=== PATIENT | male | born 1960 ===

== ENCOUNTER → 2021-05-04 | Outpatient (CLI) | payer BC ==
[~2021-05-04] MED LIST: CATHETER FLUSH 10 ML SYR IV PRN; HOLD METFORMIN - RECEIVED CONTRAST 20 ML VIAL IV SCH; IOHEXOL 350 MG/ML 100 ML (OMNIPAQUE 350) VIAL IV ONE; NS 100 ML (IVPB) BAG IV ONE
--- NOTE | 2021-05-04 11:04 | Diagnostic Imaging Report ---
PROCEDURE: CT abdomen and pelvis with contrast. TECHNIQUE: Multiple contiguous axial images were obtained through the abdomen and pelvis after administration of intravenous contrast. Auto Exposure Controls were utilized during the CT exam to meet ALARA standards for radiation dose reduction. All CT scans use one or more of the following dose optimizing techniques: automated exposure control, MA and/or KvP adjustment based on patient size and exam type or iterative reconstruction. INDICATION: Abdominal mass. No prior studies are available for comparison. FINDINGS: There is an 11 x 11 x 11 cm peripherally calcified cystic mass in the upper mid abdomen at the level of the pancreas. Due to the large size it is difficult to determine if this is actually arising from the pancreas or adjacent to it. This could be a primary cystic neoplasm of the pancreas. It could be a duplication cyst. I do not believe this represents a thrombosed aneurysm off of a branch of the celiac axis. No intrinsic abnormality of the liver is seen. The gallbladder is normal. Spleen and adrenals are normal. The kidneys, ureters and bladder are normal. The prostate is normal. No acute bowel abnormality is seen. There is no ascites. There is no adenopathy. There is no acute bony abnormality. IMPRESSION: There is a large peripherally calcified cystic mass in the upper abdomen in the midline which is likely but not definitely arising from the pancreas with possibilities as described above. Dictated by: Dictated on workstation # [id number]
== END ==
LOC: RAD 04-30 09:15
PROVIDERS: ATTEND Internal Medicine
DX: R19.00 Intra-abdominal and pelvic swelling, mass and lump, unspecified site (principal)
CPT/HCPCS: 74177

== ENCOUNTER → 2021-08-03 | Outpatient (CLI) | payer BC ==
[2021-08-03 13:52] LABS: BASOPHILS % (AUTO) 0 % (0-10); EOSINOPHILS % (AUTO) 0 % (0-10); LYMPHOCYTES # (AUTO) 1.1 X 10^3 (1.0-4.0); LYMPHOCYTES % (AUTO) 15 % (12-44); MEAN CORPUSCULAR HEMOGLOBIN 28 pg (25-34); MEAN CORPUSCULAR HGB CONC 30 g/dL (32-36); MEAN CORPUSCULAR VOLUME 94 fL (80-99); MEAN PLATELET VOLUME 9.8 fL (9.0-12.2); MONOCYTES # (AUTO) 0.6 X 10^3 (0.0-1.0); MONOCYTES % (AUTO) 7 % (0-12); NEUTROPHILS # (AUTO) 6.1 X 10^3 (1.8-7.8); NEUTROPHILS % (AUTO) 78 % (42-75); PLATELET COUNT 182 10^3/uL (130-400); WHITE BLOOD COUNT 7.9 10^3/uL (4.3-11.0)
[2021-08-03 13:57] LABS: ALBUMIN 3.1 GM/DL (3.2-4.5)
[2021-08-03 13:58] LABS: POTASSIUM 4.1 MMOL/L (3.6-5.0)
[2021-08-03 13:59] LABS: CALCIUM 8.7 MG/DL (8.5-10.1)
[2021-08-03 14:00] LABS: TOTAL PROTEIN 6.7 GM/DL (6.4-8.2)
[2021-08-03 14:02] LABS: BILIRUBIN,TOTAL 0.3 MG/DL (0.1-1.0)
[2021-08-03 14:04] LABS: CREATININE SERUM 0.67 MG/DL (0.60-1.30)
[2021-08-03 15:04] LABS: HEMATOCRIT 20 % (40-54)
== END ==
LOC: LAB 13:29
PROVIDERS: ATTEND Pediatrics
DX: K92.2 Gastrointestinal hemorrhage, unspecified (principal)
CPT/HCPCS: 36415; 80053; 83690; 85025